=== PATIENT | male | born 1990 | race Caucasian/White ===

== ENCOUNTER 2020-07-26 20:47 | Emergency (ER) | payer OTHER ==
[~2020-07-26 20:47] MED LIST: ABILIFY5 MG PO; ALDACTONE25 MG PO; ASPIRIN EC81 MG PO; BUSPAR5 MG PO; CARAFATE S500 MG/TSP PO; COREG25 MG PO; EFFEXOR XR150 MG PO; FLEXERIL10 MG PO; HYDRALAZINE25 MG PO; IBUPROFEN400 MG PO; NORCO 5-325 TA1 EACH PO; NORVASC5 MG PO; PRINIVIL20 MG PO; ZANTAC150 MG PO
== END 2020-07-26 23:05 | disposition home or self-care (01) ==
LOC: FER 20:47
DX: S01.81XA Laceration without foreign body of other part of head, initial encounter (principal); I10 Essential (primary) hypertension; E78.5 Hyperlipidemia, unspecified; Z86.73 Personal history of transient ischemic attack (TIA), and cerebral infarction without residual deficits; Z79.82 Long term (current) use of aspirin; Z79.899 Other long term (current) drug therapy; W22.8XXA Striking against or struck by other objects, initial encounter; Y92.009 Unspecified place in unspecified non-institutional (private) residence as the place of occurrence of the external cause
CPT/HCPCS: 70450; 72125

== ENCOUNTER 2021-10-06 17:14 | Emergency (ER) | payer OTHER ==
[2021-10-06 18:07] LABS: BASOPHIL 0.6 % (0-2); EOSINOPHIL 5.1 % (0-5); HCT 43.6 % (42.0-52.0); HGB 14.8 g/dl (13.2-18.0); MCHC 33.9 g/dL (32.0-36.0); MCV 91.4 fL (78.0-100.0); MONOCYTE 11.2 % (0-12); MPV 8.9 fL (6.0-9.5); NEUTROPHIL 55.8 % (41-80); NRBC 0; PLT 364 K/uL (150-400); RBC 4.77 M/uL (4.70-6.00); RDW 12.9 % (11.5-14.0); WBC 7.2 K/uL (4.0-10.5)
[2021-10-06 18:21] LABS: INR 1.08 (0.9-1.2); PROTHROMBIN TIME 13.7 SECONDS (11.9-13.9); PTT 28.4 SECONDS (24.9-34.6)
[2021-10-06 18:23] LABS: ALBUMIN 4.4 g/dL (3.4-5.0); BILIRUBIN - TOTAL 0.3 mg/dL (0.2-1.0); BUN/CREAT RATIO (CALC) 16.9 RATIO; CREATININE 0.89 mg/dL (0.67-1.17); GLOBULIN (CALCULATION) 4.1 g/dL; TOTAL PROTEIN 8.5 g/dL (6.4-8.2)
== END 2021-10-06 20:06 | disposition home or self-care (01) ==
LOC: FER 17:14
PROVIDERS: Emergency Medicine
DX: I71.4 Abdominal aortic aneurysm, without rupture (principal); I71.2 Thoracic aortic aneurysm, without rupture; M54.50 Low back pain, unspecified; I10 Essential (primary) hypertension
CPT/HCPCS: 36415; 71275; 80053; 84484; 85025; 85610; 85730; 93005; Q9967

== ENCOUNTER 2021-10-22 21:09 | Emergency (ER) | payer OTHER ==
[2021-10-22 22:55] LABS: BILIRUBIN NEGATIVE (NEGATIVE); BLOOD NEGATIVE Ery/uL (NEGATIVE); CLARITY CLEAR (CLEAR); COLOR YELLOW (YELLOW); GLUCOSE (U) NORMAL (NORMAL); LEUKOCYTES NEGATIVE Leu/uL (NEGATIVE); NITRITE NEGATIVE (NEGATIVE); PROTEIN NEGATIVE (NEGATIVE); UROBILINOGEN 0.2 mg/dL (0.2-1.0); pH 7.5 (5.0-9.0)
[2021-10-22 23:32] LABS: CORONAVIRUS 2019 SARS-COV-2 NEGATIVE (NEGATIVE); INFLUENZA A NAA NEGATIVE (NEGATIVE)
[2021-10-23 00:01] LABS: BASOPHIL 0.2 % (0-2); EOSINOPHIL 1.6 % (0-5); HCT 37.1 % (42.0-52.0); HGB 12.6 g/dl (13.2-18.0); LYMPHOCYTE 7.9 % (15-48); MCV 91.2 fL (78.0-100.0); MONOCYTE 13.5 % (0-12); MPV 8.8 fL (6.0-9.5); NEUTROPHIL 76.4 % (41-80); NRBC 0; PLT 236 K/uL (150-400); RBC 4.07 M/uL (4.70-6.00); RDW 13.2 % (11.5-14.0); WBC 4.5 K/uL (4.0-10.5)
[2021-10-23 00:15] LABS: INR 1.12 (0.9-1.2); PROTHROMBIN TIME 14.1 SECONDS (11.9-13.9)
[2021-10-23 00:31] LABS: ALBUMIN 3.8 g/dL (3.4-5.0); BILIRUBIN - TOTAL 0.6 mg/dL (0.2-1.0); BUN/CREAT RATIO (CALC) 14.6 RATIO; CREATININE 0.89 mg/dL (0.67-1.17); GLOBULIN (CALCULATION) 3.8 g/dL; POTASSIUM 3.7 mmol/L (3.5-5.1); TOTAL PROTEIN 7.6 g/dL (6.4-8.2)
[2021-10-23] MEDS ORDERED: ONDANSETRON HCL4 MG PO (03:06)
[2021-10-23] MEDS ORDERED: VICODIN 10/3251 EACH PO (03:06)
== END 2021-10-23 03:36 | disposition home or self-care (01) ==
LOC: FER 21:09
PROVIDERS: Emergency Medicine
DX: S70.01XA Contusion of right hip, initial encounter (principal); W01.0XXA Fall on same level from slipping, tripping and stumbling without subsequent striking against object, initial encounter; Y92.009 Unspecified place in unspecified non-institutional (private) residence as the place of occurrence of the external cause; Z20.822 Contact with and (suspected) exposure to COVID-19
CPT/HCPCS: 36415; 70450; 71045; 80053; 81003; 85025; 85610; J1885; J2405; U0002